=== PATIENT | female | born 1990 | race Caucasian/White ===

== ENCOUNTER 2019-07-01 15:42 | Emergency (ER) | payer MEDICAID ==
[2019-07-01] MEDS ORDERED: ACETAMINOPHEN 325 MG TAB PO ONE (16:02)
--- NOTE | 2019-07-01 16:11 | Emergency Department Record ---
History of Present Illness - General Chief Complaint: Carbon Monoxide Exposure Stated Complaint: CARBON MONOXIDE POISONING Time Seen by Provider: 07/01/19 15:57 Source: Patient Mode of Arrival: Ambulatory Limitations: No limitations - History of Present Illness Initial Comments: The patient is here due to a possible carbon monoxide exposure. 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 It was then lit by maintenance and she did have her windows up. She then continued to smell natural gas and the maintenance people did return a couple hours later and found the vent for the heater was blocked. Due to the persistent smell and the development of a mild QUESADA she decided to come to the ER to be checked out for CO poisoning. Presently she has a mild QUESADA but no vomiting, visual changes, balance issues or blurred vision. Onset/Timin -: Hour(s) Improves With: Nothing Worsens With: Nothing Context: Smoke/fume exposure Treatments Prior to Arrival: None - Related Data Home Medications Medication Instructions Recorded Confirmed Last Taken No Home Med [NO HOME MEDS] 07/01/19 07/01/19 Unknown Allergies Allergy/AdvReac Type Severity Reaction Status Date / Time codeine Allergy HIVES Verified 07/01/19 15:54 Travel Screening - Travel/Exposure Within Last 30 Days Have you traveled within the last 30 days?: No Review of Systems Constitutional: Denies: Chills, Fever Eyes: Denies: Eye discharge ENT: Denies: Congestion Respiratory: Denies: Cough, Dyspnea Past Medical History - SOCIAL HISTORY Smoking Status: Never smoker Alcohol Use: None Drug Use: None - RESPIRATORY Hx Respiratory Disorders: No - CARDIOVASCULAR Hx Cardio Disorders: No - NEURO Hx Neuro Disorders: No - GI Hx GI Disorders: No - Hx Genitourinary Disorders: No - ENDOCRINE Hx Endocrine Disorders: No - MUSCULOSKELETAL Hx Musculoskeletal Disorders: No - PSYCH Hx Psych Problems: No - HEMATOLOGY/ONCOLOGY Hx Hematology/Oncology Disorders: No Family Medical History Any Significant Family History?: No Physical Exam - General General Appearance: Alert, Oriented x3, Cooperative, No acute distress (The patient is smiling and very healthy appearing and nontoxic.) - Head Head exam: Atraumatic, Normocephalic - Eye Eye exam: Normal appearance, PERRL - ENT Throat exam: Normal inspection. negative: Tonsillar erythema, Tonsillar exudate - Neck Neck exam: Normal inspection, Full ROM. negative: Tenderness - Respiratory Respiratory exam: Normal lung sounds bilaterally. negative: Respiratory distress - Cardiovascular Cardiovascular Exam: Regular rate, Normal rhythm, Normal heart sounds - GI/Abdominal GI/Abdominal exam: Soft, Normal bowel sounds. negative: Tenderness - Extremities Extremities exam: Normal inspection, Full ROM, Normal capillary refill. negative: Tenderness - Back Back exam: Reports: Normal inspection - Neurological Neurological exam: Alert, Normal gait. negative: Abnormal gait, Motor sensory deficit - Psychiatric Psychiatric exam: negative: Anxious Course Vital Signs 07/01/19 15:48 Temperature 97.6 F Pulse Rate [ 81 Pulse Ox Probe] Respiratory 18 Rate Blood Pressure 131/76 [Left Arm] Pulse Ox 97 - Reevaluation(s) Reevaluation #1: The patient is doing better at this time. Her QUESADA is resolving and she denies any significant nausea and has had no vomiting. 07/01/19 17:15 Reevaluation #2: The patient is doing a lot better at this time. Her QUESADA has resolved and she has no nausea. She is smiling and laughing and joking and is resting comfortably. I did explain to her the need for some Tylenol or Motrin if needed and to return to the ER for any worsening symptoms. 07/01/19 17:55 Medical Decision Making - Data Complexity MDM Data: Labs Ordered and/or Reviewed - Lab Data Result diagrams: 07/01/19 16:10 07/01/19 16:10 Disposition Disposition: Discharge Clinical Impression: Carbon monoxide exposure Disposition: Home, Self-Care Condition: (2) Stable Instructions: Carbon Monoxide Poisoning (ED) Additional Instructions: Please use Tylenol or Motrin for any head pain if needed. Please return to the ER for any worsening symptoms. Forms: Patient Portal Access Time of Disposition: 17:57 Quality - Quality Measures Quality Measures: N/A - Blood Pressure Screening View Details: Yes Does Patient Have Any of the Following: No Blood Pressure Classification: Pre-Hypertensive BP Reading Systolic Measurement: 131 Diastolic Measurement: 76 Screening for High Blood Pressure: < Pre-Hypertensive BP, F/U Documented > [G8950] Pre-Hypertensive Follow-up Interventions: Referral to alternative/primary care provider.
[2019-07-01 16:18] LABS: ABSOLUTE NEUTROPHIL COUNT 5.92; BASO % 0.3 % (0-6); EOS % 1.8 % (0-6); GRAN % 68.4 % (47-80); LYMPH % 24.4 % (16-45); MEAN CELL VOLUME 87.8 fl (81-97); MEAN CORPUSCULAR HEMOGLOBIN 28.6 pg (27-33); MEAN CORPUSCULAR HGB CONC 32.6 g/dl (32-36); MEAN PLATELET VOLUME 10.3 fl (7.4-10.4); MONO % 5.1 % (0-9); PLATELET COUNT 275 K/uL (130-400); WHITE BLOOD COUNT W/O DIFF 8.7 K/uL (4.2-12.2)
[2019-07-01 16:29] LABS: BLOOD UREA NITROGEN 17 mg/dL (6-20); CREATININE 1.1 mg/dL (0.5-0.9); EST GLOMERULAR FILTRATION RATE > 60 mL/min
[2019-07-01 16:32] LABS: GLUCOSE,RANDOM 105 mg/dL (74-109)
== END 2019-07-01 18:05 | disposition home or self-care (01) ==
LOC: ER 15:42
DX: T58.11XA Toxic effect of carbon monoxide from utility gas, accidental (unintentional), initial encounter (principal); R51 Headache; Y92.009 Unspecified place in unspecified non-institutional (private) residence as the place of occurrence of the external cause
CPT/HCPCS: 80048; 82375; 85025; 99283

== ENCOUNTER 2019-10-03 18:05 | Emergency (ER) | payer MEDICAID ==
[2019-10-03] MEDS ORDERED: ERYTHROMYCIN OPTH OINT 3.5GM OPTH ONE (18:21)
--- NOTE | 2019-10-03 18:28 | Emergency Department Record ---
History of Present Illness - General Chief complaint: ENT Stated complaint: BLOCKED TEAR DUCK Time Seen by Provider: 10/03/19 18:16 Source: Patient Mode of Arrival: Ambulatory Limitations: No limitations - History of Present Illness Initial comments: 29 yo female presents with left lower lid tenderness and slight swelling that started today. She does not wear contacts but wears glasses. She did not bring them with her. No fever. No abnormal facial redness or warmth. No history of the same. The medial left lower lid in the most sensitive area. The upper lid is not affected. The right eye is not affected. [place] in [place] chief complaint: Eye pain (Eye lid) Onset/Timin -: Hour(s) Location: Left eye Place: Home If Injury: None Eye Symptoms: Other (Lid pain) If Pain, Quality: Aching Consistency: Constant Context: Other (Glasses) Associated Symptoms: Other (pain) Treatments Prior to Arrival: None - Related Data Previous Rx's Medication Instructions Recorded Clindamycin HCl 300 mg PO QID #28 capsule 10/03/19 Allergies Allergy/AdvReac Type Severity Reaction Status Date / Time codeine Allergy HIVES Verified 10/03/19 18:10 Travel Screening - Travel/Exposure Within Last 30 Days Have you traveled within the last 30 days?: No - Travel/Exposure Within Last Year Have you traveled outside the [place] in the last year?: No - Additonal Travel Details Have you been exposed to anyone with a communicable illness?: No - Travel Symptoms Symptom Screening: None Review of Systems Constitutional: Denies: Chills, Fever, Malaise, Weakness Eyes: Reports: Eye pain (left lower lid). Denies: Eye discharge, Photophobia, Vision change ENT: Denies: Congestion, Ear pain, Throat pain Respiratory: Denies: Cough Cardiovascular: Denies: Chest pain Endocrine: Denies: Fatigue Gastrointestinal: Denies: Abdominal pain, Diarrhea, Nausea, Vomiting Genitourinary: Denies: Dysuria, Urgency Musculoskeletal: Denies: Arthralgia, Back pain, Myalgia Skin: Denies: Bruising, Change in color, Rash Neurological: Denies: Headache, Vertigo Psychiatric: Denies: Anxiety Hematological/Lymphatic: Denies: Easy bleeding, Easy bruising Past Medical History - SOCIAL HISTORY Smoking Status: Never smoker Alcohol Use: None Drug Use: None - RESPIRATORY Hx Respiratory Disorders: No - CARDIOVASCULAR Hx Cardio Disorders: No - NEURO Hx Neuro Disorders: No - GI Hx GI Disorders: No - Hx Genitourinary Disorders: No - ENDOCRINE Hx Endocrine Disorders: No - MUSCULOSKELETAL Hx Musculoskeletal Disorders: No - PSYCH Hx Psych Problems: No - HEMATOLOGY/ONCOLOGY Hx Hematology/Oncology Disorders: No Family Medical History Any Significant Family History?: No Physical Exam - General General Appearance: Alert, Oriented x3, Cooperative - Head Head exam: Atraumatic, Normocephalic, Normal inspection - Eye Eye exam: Normal appearance, PERRL, EOMI, Periorbital swelling (mild left lower medial lid erythema and tenderness, slight swelling, no discharge), Periorbital tenderness (left lower lid). negative: Conjunctival injection Pupils: Normal accommodation - ENT ENT exam: Normal exam Ear exam: Normal external inspection Nasal Exam: Normal inspection Mouth exam: Normal external inspection - Neck Neck exam: Normal inspection. negative: Lymphadenopathy - Respiratory Respiratory exam: negative: Respiratory distress - Neurological Neurological exam: Alert, Normal gait, Oriented X3. negative: Altered - Psychiatric Psychiatric exam: Normal affect, Normal mood. negative: Agitated, Anxious - Skin Skin exam: Erythema ( as noted above, mild at the medial left lower lid) Course Vital Signs 10/03/19 18:11 Temperature 98.2 F Pulse Rate 84 Respiratory 20 Rate Blood Pressure 124/84 Pulse Ox 96 - Reevaluation(s) Reevaluation #1: 10/03/19 18:25 The current findings are very mild with mild lower lid swelling and tenderness, no drainage No eye is grossly normal The patient does not have her corrective lens with her so unable to perform a meaningful [facility] The patient was given instruction on home care, follow up and recommendation for a follow up with her eye doctor Disposition Disposition: Discharge Clinical Impression: Blepharitis of eyelid of left eye Qualifiers: Blepharitis type: unspecified type Eyelid: lower Qualified Code(s): H01.005 - Unspecified blepharitis left lower eyelid Disposition: Home, Self-Care Condition: (1) Good Instructions: Blepharitis (ED) Additional Instructions: Perform warm compresses every 2-4 hours ( Be careful not to make the water too hot) Take the oral antibiotic as directed until gone Be seen immediately if worse, fever, fever, spreading facial redness Call your eye doctor for a recheck in the next 1-2 days Apply the Erythromycin ointment to the lower lid every 4 hours Prescriptions: Clindamycin HCl 300 mg PO QID #28 capsule Time of Disposition: 18:24 Quality - Quality Measures Quality Measures: N/A - Blood Pressure Screening Does Patient Have Any of the Following: No Blood Pressure Classification: Pre-Hypertensive BP Reading Systolic Measurement: 124 Diastolic Measurement: 84 Screening for High Blood Pressure: < Pre-Hypertensive BP, F/U Documented > [G8950] Pre-Hypertensive Follow-up Interventions: Referral to alternative/primary care provider.
== END 2019-10-03 18:43 | disposition home or self-care (01) ==
LOC: ER 18:05
DX: H01.005 Unspecified blepharitis left lower eyelid (principal)
CPT/HCPCS: 99283

== ENCOUNTER 2019-10-22 23:56 | Emergency (ER) | payer MEDICAID ==
--- NOTE | 2019-10-23 00:14 | Emergency Department Record ---
History of Present Illness - General Chief Complaint: Fever Stated Complaint: FEVER Time Seen by Provider: 10/23/19 00:06 Source: Patient - History of Present Illness Initial Comments: The patient states she developed a fever, body aches, chen, and dry cough about 1400 on 10-21-2019. She has not had the flu shot this season. 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 She has been drinking "load and loads" of gatoraide and is urinating well. She is thinking she has influenza. Her last motrin was 6 hours ago, and her last tylenol as 9 ours ago. - Related Data Previous Rx's Medication Instructions Recorded Oseltamivir Phosphate [Tamiflu] 75 mg PO BID #9 capsule 10/23/19 Allergies Allergy/AdvReac Type Severity Reaction Status Date / Time codeine Allergy HIVES Verified 10/23/19 00:09 Review of Systems Reviewed: No additional complaints except as noted below Constitutional: Reports: As per HPI. Denies: Chills, Fever, Malaise, Night sweats, Weakness, Weight change Eyes: Reports: As per HPI. Denies: Eye discharge, Eye pain, Photophobia, Vision change ENT: Reports: As per HPI. Denies: Congestion, Dental pain, Ear pain, Epistaxis, Hearing loss, Throat pain Respiratory: Reports: As per HPI. Denies: Cough, Dyspnea, Hemoptysis, Stridor, Wheezes Cardiovascular: Reports: As per HPI. Denies: Arrhythmia, Chest pain, Dyspnea on exertion, Edema, Murmurs, Orthopnea, Palpitations, Paroxysmal nocturnal dyspnea, Rheumatic Fever, Syncope Endocrine: Reports: As per HPI. Denies: Fatigue, Heat or cold intolerance, Polydipsia, Polyuria Gastrointestinal: Reports: As per HPI. Denies: Abdominal pain, Constipation, Diarrhea, Hematemesis, Hematochezia, Melena, Nausea, Vomiting Genitourinary: Reports: As per HPI. Denies: Abnormal menses, Discharge, Dyspareunia, Dysuria, Frequency, Hematuria, Incontinence, Retention, Urgency Musculoskeletal: Reports: As per HPI. Denies: Arthralgia, Back pain, Gout, Joint swelling, Myalgia, Neck pain Skin: Reports: As per HPI. Denies: Bruising, Change in color, Change in hair/nails, Lesions, Pruritus, Rash Neurological: Reports: As per HPI. Denies: Abnormal gait, Confusion, Headache, Numbness, Paresthesias, Seizure, Tingling, Tremors, Vertigo, Weakness Psychiatric: Reports: As per HPI. Denies: Anxiety, Auditory hallucinations, Depression, Homicidal thoughts, Suicidal thoughts, Visual hallucinations Hematological/Lymphatic: Reports: As per HPI. Denies: Anemia, Blood Clots, Easy bleeding, Easy bruising, Swollen glands Past Medical History - SOCIAL HISTORY Smoking Status: Never smoker Drug Use: None - RESPIRATORY Hx Respiratory Disorders: No - CARDIOVASCULAR Hx Cardio Disorders: No - NEURO Hx Neuro Disorders: No - GI Hx GI Disorders: No - Hx Genitourinary Disorders: No - ENDOCRINE Hx Endocrine Disorders: No - MUSCULOSKELETAL Hx Musculoskeletal Disorders: No - PSYCH Hx Psych Problems: No - HEMATOLOGY/ONCOLOGY Hx Hematology/Oncology Disorders: No Physical Exam - General General Appearance: Alert, Oriented x3, Cooperative, Mild distress - Head Head exam: Normal inspection - Eye Eye exam: Normal appearance, PERRL, EOMI. negative: Conjunctival injection, Nystagmus Pupils: Normal accommodation - ENT ENT exam: Normal exam, Mucous membranes moist, Normal external ear exam, Normal orophraynx, TM's normal bilaterally Ear exam: Normal external inspection. negative: External canal tenderness Nasal Exam: Normal inspection. negative: Discharge, Sinus tenderness Mouth exam: Normal external inspection, Tongue normal Teeth exam: Normal inspection. negative: Dental caries Throat exam: Normal inspection. negative: Tonsillar erythema, Tonsillar exudate - Neck Neck exam: Normal inspection, Full ROM, Other (flexes chin to chest easily, ). negative: Lymphadenopathy, Meningismus, Tenderness - Respiratory Respiratory exam: Normal lung sounds bilaterally. negative: Respiratory distress - Cardiovascular Cardiovascular Exam: Regular rate, Normal rhythm, Normal heart sounds, Tachycardia - GI/Abdominal GI/Abdominal exam: Soft, Normal bowel sounds. negative: Tenderness - Rectal Rectal exam: Deferred - exam: Deferred - Extremities Extremities exam: Normal inspection, Full ROM, Normal capillary refill. negative: Calf tenderness, Pedal edema, Tenderness - Back Back exam: Reports: Normal inspection, Full ROM. Denies: CVA tenderness (R), CVA tenderness (L), Muscle spasm, Rash noted, Tenderness - Neurological Neurological exam: Alert, CN II-XII intact, Normal gait, Oriented X3, Reflexes normal. negative: Motor sensory deficit - Psychiatric Psychiatric exam: Normal affect, Normal mood - Skin Skin exam: Dry, Intact, Normal color, Warm (hot/febrile). negative: Rash, Urticaria Course Vital Signs 10/23/19 00:00 Temperature 102.6 F H Pulse Rate [ 118 H Pulse Ox Probe] Respiratory 24 Rate Blood Pressure 125/78 [Left Arm] Pulse Ox 96 - Reevaluation(s) Reevaluation #1: 10/23/19 00:48 Results discussed with patient. All questions answered. Medical Decision Making - Management Options MDM Management: No Additional Work-up Planned - Data Complexity MDM Data: Labs Ordered and/or Reviewed (Influenza B positive) Disposition Disposition: Discharge Clinical Impression: Influenzal bronchitis Fever Qualifiers: Fever type: unspecified Qualified Code(s): R50.9 - Fever, unspecified Disposition: Home, Self-Care Return To Work/School Note Provided: Yes Condition: (2) Stable Instructions: Fever in Adults (ED), Influenza (ED) Additional Instructions: Home, rest. Tylenol and ibuprofen (with food) around the clock for fever. Push fluids 8-12 ounces every hour while awake. Off work 3 days. Prescriptions: Oseltamivir Phosphate [Tamiflu] 75 mg PO BID #9 capsule Forms: Return to Work/School Quality - Quality Measures Quality Measures: N/A - Blood Pressure Screening Does Patient Have Any of the Following: No Blood Pressure Classification: Pre-Hypertensive BP Reading Systolic Measurement: 125 Diastolic Measurement: 78 Screening for High Blood Pressure: < Normal BP, F/U Not Required > [G8783]
[2019-10-23] MEDS ORDERED: IBUPROFEN 200 MG TABLET PO ONE (00:19)
[2019-10-23] MEDS ORDERED: ACETAMINOPHEN 500 MG TABLET PO ONE (00:19)
[2019-10-23 00:27] LABS: STREP A SCREEN NEGATIVE (NEGATIVE)
[2019-10-23 00:34] LABS: INFLUENZA A NEGATIVE (NEGATIVE); INFLUENZA B POSITIVE (NEGATIVE)
[2019-10-23] MEDS ORDERED: AL HYDROX/MAG HYDROX 30ML UD PO ONE (00:50)
[2019-10-23] MEDS ORDERED: OSTELTAMIVIR 75 MG CAP PO ONE (00:55)
== END 2019-10-23 01:10 | disposition home or self-care (01) ==
LOC: ER 23:56
DX: J10.1 Influenza due to other identified influenza virus with other respiratory manifestations (principal)
CPT/HCPCS: 87400; 87880; 99283